=== PATIENT | male | born 1960 | race Caucasian/White ===

== ENCOUNTER 2019-02-20 11:00 | Outpatient (CLI) | payer OTHER ==
[~2019-02-20 11:00] MED LIST: PERCOCET 5/3251 TAB PO
== END 2019-02-20 11:13 | disposition home or self-care (01) ==
LOC: NUCLEAR 11:00
DX: I73.9 Peripheral vascular disease, unspecified (principal)

== ENCOUNTER 2024-06-06 13:15 | Emergency (ER) | payer OTHER ==
[~2024-06-06] VITALS: Ht 188 cm; Wt 108.9 kg
[2024-06-06 15:11] LABS: HEMATOCRIT 47.8 % (39.0-48.0); HEMOGLOBIN 16.4 g/dL (13-16.00); MEAN CELL VOLUME 87.6 fL (80.0-100.00); MEAN CORPUSCULAR HGB CONC 34.2 g/dl (32.0-36.0); PLATELET COUNT 266 K/uL (150-450); RED BLOOD COUNT 5.46 M/uL (4.00-6.00); RED CELL DISTRIBUTION WIDTH 13.9 % (11.5-14.5)
[2024-06-06 15:32] LABS: CALCIUM 8.8 mg/dL (8.5-10.1); CREATININE SERUM 1.46 mg/dL (0.70-1.30); GFR 48.46; POTASSIUM 4.81 mEq/L (3.5-5.1)
== END 2024-06-06 18:04 | disposition home or self-care (01) ==
LOC: ER 13:17
PROVIDERS: General Practice
DX: S92.912A Unspecified fracture of left toe(s), initial encounter for closed fracture (principal); X83.8XXA Intentional self-harm by other specified means, initial encounter; Y93.89 Activity, other specified; Y92.89 Other specified places as the place of occurrence of the external cause; Y99.8 Other external cause status; Z88.5 Allergy status to narcotic agent